=== PATIENT | female | born 1965 | race Hispanic/Latino ===

== ENCOUNTER 2020-12-21 09:45 | Emergency (ER) | payer OTHER ==
[2020-12-21 10:17] LABS: Absolute Lymphocytes (CBC) 1.6 K/uL (0.7-4.9); Basophils % 0.7 % (0-1.3); Hematocrit 40.8 % (36.0-45.0); Lymphocytes % 29.7 % (15.3-44.8); MPV 7.3 fL (7.6-11.3); RBC Red Blood Cell Count 4.71 M/uL (3.86-4.86)
[2020-12-21 10:22] LABS: Protime INR 0.86
[2020-12-21 10:39] LABS: Potassium 4.3 mmol/L (3.5-5.1)
[2020-12-21] MEDS ORDERED: NA CHLORIDE 0.9% 500 ML ONE (10:41)
[2020-12-21] MEDS ORDERED: LORazepam 2 MG/ML VIAL ONE (10:41)
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
[2020-12-21 11:25] VITALS: BP 144/87; TEMP 98.1; O2SAT 97
[2020-12-21] MEDS ORDERED: LIDOCAINE 4% PATCH ONE (11:34)
== END 2020-12-21 11:21 | disposition home or self-care (01) ==
LOC: ER 09:45
DX: R51.9 Headache, unspecified (principal); M54.2 Cervicalgia; M54.9 Dorsalgia, unspecified; V49.9XXA Car occupant (driver) (passenger) injured in unspecified traffic accident, initial encounter; Z88.6 Allergy status to analgesic agent
CPT/HCPCS: 96361; 85025; 80048; 36415; 85610; 82565; 70450; 72125; 71260; 74177; 96374; 99284; Q9967; J7040